=== PATIENT | female | born 2000 | race Caucasian/White ===

== ENCOUNTER 2022-02-28 17:58 | Emergency (ER) | payer BC, SELFPAY ==
[2022-02-28 18:19] VITALS: BP 107/63; PULSE 82; RESP 18; TEMP 36.7; O2SAT 98
--- NOTE | 2022-02-28 20:04 | ED.URI ---
HPI - URI/Sore Throat General Chief Complaint: Upper Respiratory Infection Stated Complaint: Fever/Headache/Sore Throat Time Seen by Provider: 02/28/22 19:50 Source: patient, RN notes reviewed and old records reviewed Mode of arrival: ambulatory Limitations: no limitations History of Present Illness HPI Narrative: 22-year-old female accompanied by boyfriend presents to [facility] with complaints headache, fatigue, nasal drainage and congestion, some sore throat since the 09 of February. Patient reports that she had a 102F temperature this morning. Patient reports that she has had COVID vaccines and booster but no flu shot.Patient reports that she took home COVID test this am which was negative. Patient has taken DayQuil for her symptoms. MD elicited complaint: fever, cough, sore throat, rhinorrhea, nasal congestion and other (fatigue) Pain scale (0-10): 3 Treatments prior to arrival: other (DayQuil) Related Data Allergies Allergy/AdvReac Type Severity Reaction Status Date / Time No Known Allergies Allergy Verified 02/28/22 18:55 Review of Systems Review of Systems: CONSTITUTIONAL: Reports fever, chills, or sweats. EYES: Denies visual changes, redness, or discharge. ENT: reports rhinorrhea, congestion, sore throat, no otalgia. CARDIOVASCULAR: Denies chest pain, palpitations, or edema. RESPIRATORY: Denies cough or dyspnea. GASTROINTESTINAL: Denies abdominal pain, nausea, vomiting, or diarrhea. GENITOURINARY: Denies dysuria or hematuria. SKIN: Denies rash or itching. MUSCULOSKELETAL: Denies back pain, joint pain, positive myalgia NEUROLOGIC: Reports headache, numbness, or weakness. PSYCHIATRIC:Reports history of anxiety or depression. All systems reviewed & are unremarkable except as noted in HPI and below PMFSH Past Medical History Medical History (Updated 02/28/22 @ 20:09 by Roshni Lee NP) Influenza A Comments At time of signature, agree with nursing past medical, surgical, social and family history. There is no relevant family history pertinent to the presenting complaint Exam Narrative: GENERAL: Well-appearing, well-nourished, and in no acute distress. HEAD: Normocephalic, atraumatic. EYES: PERRLA and EOMI. ENT: Nares clear, clear rhinorrhea or epistaxis. Mucous membranes moist.TM's normal with good light reflex, throat red with no lesions or exudates or swelling post nasal drainage present NECK: Supple.no lymphadenopathy CHEST: Clear to auscultation. No respiratory distress. SAO2 98% on room air HEART: Regular rate and rhythm. No murmur heard. Normal peripheral pulses. ABDOMEN: Soft, nontender, nondistended, normal active bowel sounds. EXTREMITIES: Normal range of motion. No edema. SKIN: Warm, dry, no rash. NEURO: No focal deficits. Alert and oriented x3. Course Course Emergency Course: Patient is aware of diagnosis, understands and agrees to treatment plan.? Anticipatory guidance given.? Patient agrees to follow-up as directed and is aware of reasons to seek care at the emergency department. Portions of this record may have been created with voice recognition software Level of Care: Express Care Visit Vital Signs Vital signs: Vital Signs Temperature 36.7 C 02/28/22 18:19 Pulse Rate 82 02/28/22 18:19 Respiratory Rate 18 02/28/22 18:19 Blood Pressure 107/63 02/28/22 18:19 Pulse Oximetry 98 02/28/22 18:19 Oxygen Delivery Room Air 02/28/22 18:19 Temperature 36.7 C 02/28/22 18:19 Pulse Rate 82 02/28/22 18:19 Respiratory Rate 18 02/28/22 18:19 Blood Pressure 107/63 02/28/22 18:19 Pulse Oximetry 98 02/28/22 18:19 Oxygen Delivery Room Air 02/28/22 18:19 Reviewed MDM - URI/Sore Throat Differential Diagnosis Differential diagnosis: Likely upper respiratory infection, otitis media, sinusitis, viral infection and influenza Medical Records Attestation: I reviewed the patient's medical records. Lab Data Attestation: I reviewed the patient's lab results. Lab re
== END 2022-02-28 20:12 | disposition home or self-care (01) ==
PROVIDERS: Emergency Provider Registered Nurse
DX: J10.1 Influenza due to other identified influenza virus with other respiratory manifestations (principal)
CPT/HCPCS: 87804; 99213; G0463